=== PATIENT | female | born 1995 | race Caucasian/White ===

== ENCOUNTER 2018-03-11 18:58 | Emergency (ER) | payer OTHER ==
[2018-03-11] MEDS ORDERED: IBUPROFEN 600 MG TABLET PO ONE (19:56)
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
[2018-03-11 22:09] VITALS: BP 110/81
== END 2018-03-11 22:09 | disposition home or self-care (01) ==
LOC: ER 18:58
DX: M54.5 Low back pain (principal); M25.512 Pain in left shoulder; V49.60XA Unspecified car occupant injured in collision with unspecified motor vehicles in traffic accident, initial encounter; R20.8 Other disturbances of skin sensation; F17.210 Nicotine dependence, cigarettes, uncomplicated; Z71.6 Tobacco abuse counseling
CPT/HCPCS: 99284; 99406